=== PATIENT | male | born 1985 | race Caucasian/White ===

== ENCOUNTER 2016-12-31 00:50 | Emergency (ER) | payer OTHER ==
--- NOTE | ~2016-12-31 | CT99 ---
[facility] A Service of [facility] & [facility] RADIOLOGY TEXT RESULTS PATIENT: SHANNA TRAVIS LOCATION: [facility] : 89 UNIT #: [id number] AGE: [address]: Tiffanie Fisher MD SEX: M ORDER DR: [id number] [facility] [address] [place], [place] [address] [id number] MR#: [id number] Acc #: [id number] NAME: SHANNA TRAVIS. : 1985 SEX: M STUDY DATE/TIME: 12/31/2016 1:15 UNIT: [facility] ROOM: STUDY DESCRIPTION: CT Maxillofacial Area W Cont Attending Physician: Tiffanie Fisher M.D. Ordering Physician: Rashard Minor M.D. Primary Care Physician: Primary Care Physician No MEDICAL IMAGING REPORT This report is preliminary unless electronic signature is present EXAM Maxillofacial CT HISTORY: Left facial swelling over the past 3 days with warm and redness. TECHNIQUE Axial imaging was obtained through the maxillofacial area with contrast. 100 mL of Isovue was used. Images were evaluated at bone and soft tissue windows. The CT exam was performed with one or more of the following radiation dose reduction techniques: automatic exposure control, adjustment of mA and/or kV according to patient size, and iterative reconstruction. FINDINGS Postoperative changes are seen at the left orbital floor and lateral maxillary sinus wall and the maxillary sinus is completely opacified. There is a nonunited depressed fracture of the lateral maxillary sinus wall. The superior aspect of the bone plate in this area is not anchored in bone. The inferior aspect of the bone plate is anchored just above the superior alveolar ridge. There is a partially united fracture of the mid zygoma as well on the left. There is soft tissue swelling and a small fluid collections seen with associated with the lateral maxillary sinus bone plate. This is suspicious for a small abscess. The cavity measures approximately 1.2 x 2.4 cm. No adenopathy is noted. The remainder of the maxillofacial area is remarkable for mild mucosal thickening in the right maxillary sinus without fluid. IMPRESSION Postoperative changes in the left side of the maxilla. The lateral [facility] A Service of [facility] & [facility] RADIOLOGY TEXT RESULTS PATIENT: SHANNA TRAVIS LOCATION: [facility] : 87 UNIT #: [id number] AGE: [address]: Tiffanie Fisher MD SEX: M ORDER DR: maxillary sinus wall bone plate is anchored inferiorly but pulled away from bone superiorly. There is a gap in the bone in the lateral maxillary sinus wall and the sinus is completely opacified with mucus. Superficially around the upper end of this bone plate there is a small fluid collection suspicious for abscess with adjacent soft tissue swelling and subcutaneous edema. The cavity measures about 2.4 x 1.2 cm in diameter. The other left sided maxillofacial plates appear in satisfactory position. Dictated by... Rashard Rai M.D. THIS IS AN ELECTRONICALLY VERIFIED REPORT Rashard Rai M.D. at 12/31/2016 10:38 PM SERAFIN/sarah TD: 12/31/2016 07:21 JOB #: [id number] MEDICAL IMAGING REPORT COPY
[~2016-12-31 00:50] MED LIST: CLEOCIN HCL300 M1 PO; DOLOBID PO; LORTAB 5-325 M1 EACH PO; LORTAB 5/500 TA1 TA1 PO; NO MEDICATIONS; SULFACETAMIDE 10%; ULTRAM PO; VICODIN 5/1 TAB 5/50 PO
[2016-12-31 01:26] LABS: BASOPHIL% 0.4 % (0-2.5); EOSINOPHIL# 0.1 X10e3 (0-0.7); EOSINOPHIL% 0.8 % (0.0-7.0); HEMATOCRIT 35.1 % (38.0-50.0); HEMOGLOBIN 11.7 gm/dL (13.0-16.0); LYMPHOCYTE# 1.9 X10e3 (1.0-3.5); LYMPHOCYTE% 22.1 % (17.0-45.0); MEAN CELL VOLUME 90.6 FL (83-96); MEAN CORPUSCULAR HEMOGLOBIN 30.2 PG (28-34); MEAN CORPUSCULAR HGB CONC 33.3 g/dL (30-36); MEAN PLATELET VOLUME 7.9 FL (6.5-11.5); MONOCYTE# 0.7 X10e3 (0-1.0); MONOCYTE% 8.6 % (3.0-12.0); NEUTROPHIL# 5.9 X10e3 (1.5-7.1); NEUTROPHIL% 68.1 % (40-75); PLATELET COUNT 242 X10e3 (140-420); RED BLOOD COUNT 3.88 X10e (3.90-5.60); RED CELL DISTRIBUTION WIDTH 12.9 % (11.0-15.5); WHITE BLOOD COUNT 8.7 X10e3 (4.0-10.5)
[2016-12-31 01:33] LABS: DIFF IND NO
[2016-12-31 02:11] LABS: BLOOD UREA NITROGEN 13 mg/dL (9-23); BUN/CREATININE RATIO 14.44; CALCIUM SERUM 8.8 mg/dL (8.4-10.2); CARBON DIOXIDE 30 mmol/L (22-31); CHLORIDE 101 mmol/L (100-111); CREATININE SERUM 0.9 mg/dL (0.6-1.4); GLOM FILT RATE Estimated ABOVE60 mL/min (>60); GLUCOSE FASTING 90 mg/dL (70-110); SODIUM 136 mmol/L (135-145)
== END 2016-12-31 06:14 | disposition hospice, home (50) ==
LOC: CED 00:50
PROVIDERS: Emergency Medicine
DX: Z53.21 Procedure and treatment not carried out due to patient leaving prior to being seen by health care provider (principal)
CPT/HCPCS: 70487; 80048; 85025; Q9967

== ENCOUNTER 2017-03-18 19:24 | Emergency (ER) | payer OTHER | END 2017-03-18 19:43 | disposition left against medical advice (07) | LOC: SED 19:24 | DX: Z53.21 Procedure and treatment not carried out due to patient leaving prior to being seen by health care provider (principal) ==

== ENCOUNTER 2017-03-18 22:01 | Emergency (ER) | payer OTHER | END 2017-03-18 23:27 | disposition home or self-care (01) | LOC: CED 22:01 | DX: K75.9 Inflammatory liver disease, unspecified (principal); F17.200 Nicotine dependence, unspecified, uncomplicated | CPT/HCPCS: 99282 ==

== ENCOUNTER → 2017-03-23 03:00 | Emergency (ER) | payer OTHER ==
[~2017-03-23 03:00] MED LIST changes: +VOLTAREN75 MG PO
== END | disposition left against medical advice (07) ==
LOC: CED 03:00
DX: Z53.21 Procedure and treatment not carried out due to patient leaving prior to being seen by health care provider (principal)

== ENCOUNTER 2017-03-23 05:41 | Emergency (ER) | payer OTHER ==
[~2017-03-23 05:41] MED LIST changes: -VOLTAREN75 MG PO
== END 2017-03-23 07:04 | disposition home or self-care (01) ==
LOC: CED 05:41
DX: M79.674 Pain in right toe(s) (principal); F17.210 Nicotine dependence, cigarettes, uncomplicated
CPT/HCPCS: 99282

== ENCOUNTER 2017-05-01 22:33 | Emergency (ER) | payer OTHER ==
[2017-05-02 03:01] LABS: HEMOGLOBIN 11.2 gm/dL (13.0-16.0); MEAN CELL VOLUME 93.6 FL (83-96); MEAN CORPUSCULAR HGB CONC 33.1 g/dL (30-36); MEAN PLATELET VOLUME 7.8 FL (6.5-11.5); RED BLOOD COUNT 3.63 X10e (3.90-5.60); WHITE BLOOD COUNT 7.4 X10e3 (4.0-10.5)
[2017-05-02 03:20] LABS: ALBUMIN SERUM 2.8 g/dL (3.5-5.0); BILIRUBIN, DIRECT 0.2 mg/dL (0.0-0.2); BILIRUBIN,INDIRECT 0.4 mg/dL (0.0-0.9); BILIRUBIN,TOTAL 0.6 mg/dL (0.2-2.0); CALCIUM SERUM 7.7 mg/dL (8.4-10.2); CREATININE SERUM 0.8 mg/dL (0.6-1.4); GLOM FILT RATE Estimated 120.8 mL/min (>60); POTASSIUM 3.7 mmol/L (3.5-5.1); PROTEIN TOTAL SERUM 5.8 g/dL (6.0-8.3)
== END 2017-05-02 04:00 | disposition home or self-care (01) ==
LOC: SED 22:33
PROVIDERS: Emergency Medicine
DX: S90.862A Insect bite (nonvenomous), left foot, initial encounter (principal); S90.861A Insect bite (nonvenomous), right foot, initial encounter; F19.10 Other psychoactive substance abuse, uncomplicated; F17.210 Nicotine dependence, cigarettes, uncomplicated; W57.XXXA Bitten or stung by nonvenomous insect and other nonvenomous arthropods, initial encounter
CPT/HCPCS: 36415; 80048; 80076; 85027; 99283

== ENCOUNTER 2017-05-06 19:35 | Emergency (ER) | payer OTHER ==
[2017-05-06 20:18] LABS: URINE SOURCE CLEAN CATCH
[2017-05-06 20:21] LABS: URINE APPEARANCE CLEAR; URINE BILIRUBIN NEG (NEG); URINE BLOOD NEG (NEG); URINE COLOR YELLOW; URINE GLUCOSE NEG (NORM); URINE KETONE NEG (NEG); URINE LEUKOCYTE ESTERASE NEG (NEG); URINE NITRATE NEG (NEG); URINE PH 6.5 (5-8); URINE PROTEIN TRACE (NEG); URINE SPECIFIC GRAVITY 1.025 (1.003-1.035); URINE UROBILINOGEN 0.2 MG/DL (NORM)
[2017-05-06 20:22] LABS: MICRO INDICATED? NO
[2017-05-06 20:31] LABS: AMPHETAMINE POS (NEG); BARBITURATES NEG (NEG); BENZODIAZEPINES NEG (NEG); COCAINE NEG (NEG); MARIJUANA NEG (NEG); OPIATES POS (NEG); TRICYCLIC ANTIDEPRESSANTS NEG (NEG); U METHADONE NEG (NEG)
[2017-05-06 20:43] LABS: ACETAMINOPHEN <10 ug/mL; ALBUMIN SERUM 3.5 g/dL (3.5-5.0); ALCOHOL BLOOD <5 mg/dL (0); ALKALINE PHOSPHATASE 81 U/L (32-92); ALT (SGPT) 211 U/L (10-40); AST (SGOT) 170 U/L (10-42); BILIRUBIN, DIRECT 0.1 mg/dL (0.0-0.2); BILIRUBIN,INDIRECT 0.2 mg/dL (0.0-0.9); BILIRUBIN,TOTAL 0.3 mg/dL (0.2-2.0); BLOOD UREA NITROGEN 19 mg/dL (9-23); BUN/CREATININE RATIO 23.75; CALCIUM SERUM 8.7 mg/dL (8.4-10.2); CARBON DIOXIDE 30 mmol/L (22-31); CHLORIDE 102 mmol/L (100-111); CREATININE SERUM 0.8 mg/dL (0.6-1.4); GLOM FILT RATE Estimated 120.8 mL/min (>60); GLUCOSE FASTING 103 mg/dL (70-110); POTASSIUM 4.3 mmol/L (3.5-5.1); PROTEIN TOTAL SERUM 7.3 g/dL (6.0-8.3); SALICYLATE <4.0 mg/dL; SODIUM 134 mmol/L (135-145)
[2017-05-06] MEDS ORDERED: VOLTAREN75 MG PO (20:47)
== END 2017-05-06 20:47 | disposition home or self-care (01) ==
LOC: SED 19:35
PROVIDERS: Emergency Medicine
DX: F11.10 Opioid abuse, uncomplicated (principal); F15.10 Other stimulant abuse, uncomplicated; M94.0 Chondrocostal junction syndrome [Tietze]; K73.9 Chronic hepatitis, unspecified; F17.210 Nicotine dependence, cigarettes, uncomplicated; Z79.899 Other long term (current) drug therapy
CPT/HCPCS: 36415; 80048; 80076; 80307; 81003; 99283; G0480

== ENCOUNTER 2017-06-29 15:09 | Emergency (ER) | payer OTHER ==
--- NOTE | ~2017-06-29 | CR72 ---
[facility]. [facility] A Service of [facility] & [facility] RADIOLOGY TEXT RESULTS PATIENT: SHANNA TRAVIS LOCATION: SED : 89 UNIT #: [id number] AGE: [address]: Sathish Pacheco MD SEX: M ORDER DR: [id number] [address] [address] [id number] E MR#: [id number] Acc #: [id number] NAME: SHANNA TRAVIS : 1985 SEX: M STUDY DATE/TIME: 06/29/2017 15:24 UNIT: SED ROOM: STUDY DESCRIPTION: CR Chest Single View Portable Attending Physician: Sathish Pacheco M.D. Ordering Physician: Sathish Pacheco M.D. Primary Care Physician: No Primary Care Physician MEDICAL IMAGING REPORT This report is preliminary unless electronic signature is present. EXAM Frontal chest, 06/29/2017. INDICATIONS 32-year-old male with heroin overdose immediately prior to arrival today. COMPARISON Frontal chest compared 03/11/2017. FINDINGS There is gaseous distension of the stomach. Cardiac silhouette is within normal limits. The vascularity is normal and the lungs are clear. No pneumothorax. IMPRESSION Negative frontal chest. Gaseous distension of the stomach. Dictated by... Teodoro Shea M.D. THIS IS AN ELECTRONICALLY VERIFIED REPORT Teodoro Shea M.D. at 06/30/2017 2:22 PM CECILIA/dayna TD: 06/30/2017 10:19 JOB #: [id number] MEDICAL IMAGING REPORT Page 1 of 1
[~2017-06-29 15:09] MED LIST changes: +VOLTAREN75 MG PO
[2017-06-29] MEDS ORDERED: NO MEDICATIONS (15:20)
[2017-06-29 16:01] LABS: AMPHETAMINE POS (NEG); BARBITURATES NEG (NEG); BENZODIAZEPINES POS (NEG); COCAINE NEG (NEG); MARIJUANA NEG (NEG); OPIATES POS (NEG); TRICYCLIC ANTIDEPRESSANTS NEG (NEG); U METHADONE NEG (NEG)
== END 2017-06-29 16:00 | disposition left against medical advice (07) ==
LOC: SED 15:09
PROVIDERS: Emergency Medicine
DX: T40.1X1A Poisoning by heroin, accidental (unintentional), initial encounter (principal); F17.210 Nicotine dependence, cigarettes, uncomplicated; Z86.19 Personal history of other infectious and parasitic diseases
CPT/HCPCS: 71010; 80307; 99284

== ENCOUNTER 2017-06-29 17:44 | Emergency (ER) | payer OTHER | END 2017-06-29 20:06 | disposition home or self-care (01) | LOC: SED 17:44 | DX: T40.1X1A Poisoning by heroin, accidental (unintentional), initial encounter (principal) | CPT/HCPCS: 99284 ==